=== PATIENT | female | born 1950 | race Caucasian/White ===

== ENCOUNTER 2017-01-23 10:28 | Emergency (ER) | payer OTHER ==
[~2017-01-23] VITALS: Ht 182.9 cm; Wt 86.2 kg
[2017-01-23 11:05] VITALS: BP 132/81
[2017-01-23] MEDS ORDERED: SINGULAIR 10 MG10 M1 PO (11:07)
[2017-01-23] MEDS ORDERED: DULERA 100 MCG/13 GM (11:07)
[2017-01-23] MEDS ORDERED: PROAIR HFA8.5 GM (11:08)
[2017-01-23] MEDS ORDERED: FLONASE 0.05%50 MCG NASAL (11:08)
[2017-01-23] MEDS ORDERED: HYDROCODONE-AP1 EAC6 PO (11:53)
== END 2017-01-23 12:14 | disposition home or self-care (01) ==
LOC: ER 10:28
DX: S63.601A Unspecified sprain of right thumb, initial encounter (principal); J45.909 Unspecified asthma, uncomplicated; F10.99 Alcohol use, unspecified with unspecified alcohol-induced disorder; Z98.890 Other specified postprocedural states; Z88.2 Allergy status to sulfonamides; V18.0XXA Pedal cycle driver injured in noncollision transport accident in nontraffic accident, initial encounter; Y93.I9 Activity, other involving external motion; Y92.89 Other specified places as the place of occurrence of the external cause; Y99.8 Other external cause status